=== PATIENT | male | born 1960 | race Caucasian/White ===

== ENCOUNTER → 2021-05-10 | Day surgery (SDC) | payer MEDICAID ==
[~2021-05-10] VITALS: Ht 180.3 cm; Wt 124.7 kg
[~2021-05-10] MED LIST: AMLO10TA80 MT; ATOR10TA69 PO; BUPIVACAINE HCL 0.5% (5MG/ML) 50ML ONE; CEFAZOLIN SODIUM 1000MG/VIAL ONE; DEXAMETHASONE 4MG/ML 1ML VIAL ONE; DOCU-138 MT; ERTU1TAB9 PO; FENTANYL CITRATE/PF 50MCG/ML 2ML VIAL IV PRN; FENTANYL CITRATE/PF 50MCG/ML 2ML VIAL ONE; FINA5TAB11 MT; FLUO40CA49 MT; FLUT16SP15 BOTHNSTRLS; GABA-532 PO; INSU100I24 SQ; LIDOCAINE HCL 1% 10 MG/ML 10ML VIAL ONE; LORA10TA7 PO; MECL-159 PO; MEPERIDINE HCL/PF 25MG/ML CPJ IV PRN; MIDAZOLAM HCL 2 MG/2 ML VIAL ONE; MONT10TA21 MT; ONDANSETRON HCL 4MG/2ML INJ ONE; PERIDEX; PROP20TA7 PO; PROPOFOL 200MG/20ML VIAL IV ONE; SKIN ADHESIVE 0.7 GM EA TOP ONE; SODIUM CHLORIDE 0.9% 1,000 ML IV SCH; SUCCINYLCHOLINE CHLORIDE 200MG/10ML IV ONE
== END | disposition home or self-care (01) ==
LOC: OR 07:03
PROVIDERS: ATTEND Surgery
DX: K42.9 Umbilical hernia without obstruction or gangrene (principal); I10 Essential (primary) hypertension; E78.00 Pure hypercholesterolemia, unspecified; E11.65 Type 2 diabetes mellitus with hyperglycemia; E66.01 Morbid (severe) obesity due to excess calories; F32.9 Major depressive disorder, single episode, unspecified; K21.9 Gastro-esophageal reflux disease without esophagitis; Z79.82 Long term (current) use of aspirin; Z79.84 Long term (current) use of oral hypoglycemic drugs; Z79.899 Other long term (current) drug therapy; Z98.890 Other specified postprocedural states; Z20.822 Contact with and (suspected) exposure to COVID-19
CPT/HCPCS: 49585; 82962; 87426; C1781; J0330; J0690; J1100; J2250; J2405; J2704; J3010; J3490

== ENCOUNTER 2021-05-11 17:32 | Emergency (ER) | payer MEDICAID ==
[~2021-05-11] VITALS: Ht 180.3 cm; Wt 123.0 kg
[~2021-05-11 17:32] MED LIST changes: -ATOR10TA69 PO; -BUPIVACAINE HCL 0.5% (5MG/ML) 50ML ONE; -CEFAZOLIN SODIUM 1000MG/VIAL ONE; -DEXAMETHASONE 4MG/ML 1ML VIAL ONE; -FENTANYL CITRATE/PF 50MCG/ML 2ML VIAL IV PRN; -FENTANYL CITRATE/PF 50MCG/ML 2ML VIAL ONE; -GABA-532 PO; -LIDOCAINE HCL 1% 10 MG/ML 10ML VIAL ONE; -MECL-159 PO; -MEPERIDINE HCL/PF 25MG/ML CPJ IV PRN; -MIDAZOLAM HCL 2 MG/2 ML VIAL ONE; -ONDANSETRON HCL 4MG/2ML INJ ONE; -PERIDEX; -PROP20TA7 PO; -PROPOFOL 200MG/20ML VIAL IV ONE; -SKIN ADHESIVE 0.7 GM EA TOP ONE; -SODIUM CHLORIDE 0.9% 1,000 ML IV SCH; -SUCCINYLCHOLINE CHLORIDE 200MG/10ML IV ONE
[2021-05-11 18:20] VITALS: BP 132/85
== END 2021-05-11 22:48 | disposition home or self-care (01) ==
LOC: ER 17:32
DX: L76.22 Postprocedural hemorrhage of skin and subcutaneous tissue following other procedure (principal); I10 Essential (primary) hypertension; E78.00 Pure hypercholesterolemia, unspecified; F32.A Depression, unspecified; Y83.8 Other surgical procedures as the cause of abnormal reaction of the patient, or of later complication, without mention of misadventure at the time of the procedure; Y92.018 Other place in single-family (private) house as the place of occurrence of the external cause
CPT/HCPCS: 99281